=== PATIENT | female | born 1995 | race African-American/Black ===

== ENCOUNTER 2017-11-25 15:37 | Emergency (ER) | payer SELFPAY ==
[~2017-11-25] VITALS: Ht 162.6 cm; Wt 74.0 kg
[2017-11-25 16:03] VITALS: BP 111/73
== END 2017-11-25 20:00 | disposition left against medical advice (07) ==
LOC: ER 16:32
DX: Z53.21 Procedure and treatment not carried out due to patient leaving prior to being seen by health care provider (principal)